=== PATIENT | male | born 1960 | race Caucasian/White ===

== ENCOUNTER → 2019-01-18 10:32 | Outpatient (CLI) | payer OTHER, SELFPAY ==
--- NOTE | 2019-01-18 | DI.US.S_ITS ---
PROCEDURE: US CAROTID DOPPLER BI INDICATIONS: SYNCOPE TECHNIQUE: Color and pulse Doppler interrogation was performed of both carotid systems, with image documentation and velocity measurements. COMPARISON: None. FINDINGS: Stenosis calculations are based on SRU (Society [employer] in Ultras[employer]) criteria. The flow velocities and the arterial waveforms are normal within both carotid arterial systems. Atherosclerotic plaque is seen on both sides. The estimated degree of internal carotid artery stenosis is less than 50%. Antegrade flow is confirmed within both vertebral arteries. IMPRESSION: No hemodynamically significant stenosis is seen. Atherosclerotic plaque is noted bilaterally. Dictated by: Asael Yeung M.D. on 01/18/2019 at 11:25 Approved by: Asael Yeung M.D. on 01/18/2019 at 11:25
== END ==
PROVIDERS: PCP Family Medicine; Visit Provider Family Medicine
DX: R55 Syncope and collapse (principal); I65.23 Occlusion and stenosis of bilateral carotid arteries
CPT/HCPCS: 93880

== ENCOUNTER → 2020-05-10 15:43 | Outpatient (CLI) | payer OTHER, SELFPAY ==
--- NOTE | 2020-05-10 | DI.RAD.S_ITS ---
PROCEDURE: XR LUMBAR SPINE MIN 4V INDICATIONS: Acute Lt Side Low Back Pain W/Sciatica TECHNIQUE: 5 views of the lumbar spine were acquired, including flexion and extension views. COMPARISON: None. FINDINGS: Bones: Postoperative changes are seen, with bilateral pedicle screws at the L2 and L4 levels. The screws appear well placed. Vertical fixation rods are seen. No findings of hardware failure or hardware loosening are seen. Bone grafting material is noted. On flexion-extension views, there is limited range of motion, without abnormal subluxation. No abnormal motion can be seen within the fused region. 5 nonrib-bearing, lumbar type vertebral bodies are seen. There is a remote L3 fracture involving the superior endplate. No acute appearing fractures are seen. No suspicious lytic or blastic lesions can be seen. There is mild to moderate disc space narrowing seen at L2-3 and L3-4. At least moderate disc space narrowing is seen at L5-S1. Soft tissues: Overlying bowel gas pattern is normal. No suspicious soft tissue calcifications. Prostate seed implants can be seen. IMPRESSION: Unremarkable postoperative hardware. Remote L3 compression deformity. Focal L5-S1 degenerative change. Limited range of motion, without abnormal subluxation. Dictated by: Asael Yeung M.D. on 05/10/2020 at 15:35 Approved by: Asael Yeung M.D. on 05/10/2020 at 15:36
== END ==
PROVIDERS: PCP Family Medicine; Referring Provider Family Medicine; Visit Provider Family Medicine
DX: M54.42 Lumbago with sciatica, left side (principal); M47.817 Spondylosis without myelopathy or radiculopathy, lumbosacral region
CPT/HCPCS: 72110

== ENCOUNTER → 2022-07-26 11:14 | Outpatient (CLI) | payer OTHER, SELFPAY ==
--- NOTE | 2022-07-26 | DI.CT.S_ITS ---
PROCEDURE: CT CHEST WO CON INDICATIONS: Personal history of nicotine dependence TECHNIQUE: Noncontrast 2.0-2.5 mm thick sections acquired from the pulmonary apices to the posterior costophrenic angles. 7 mm thick axial MIP, and 5 mm coronal and sagittal reformats were then acquired. A low radiation dose technique was utilized. COMPARISON: None. FINDINGS: Image quality: Diagnostic, given the low radiation dose technique. Lungs and pleura: 2 lung nodules are present in the right lung. Nodule 1: 5 mm; right upper lobe, posterior; series 3, image 85; subsolid. Nodule 2: 2 mm; right upper lobe medial; series 3, image 116; solid. Mediastinum: Heart size is normal. No pericardial effusion. No mediastinal adenopathy by size criteria. Thoracic aorta and central pulmonary arteries are normal in size. Esophagus is normal in caliber. No hiatal hernia. Bones and chest wall: No suspicious bony lesions. No vertebral body compression fractures. No axillary or supraclavicular adenopathy by size criteria. Thyroid gland is normal. Abdomen: Visualized upper abdomen solid organs and bowel loops appear normal in the absence of contrast. IMPRESSION: 2 lung nodules are identified in right upper lobe. LUNG-RADS 3; probably benign. A 6 month follow-up CT suggested. Dictated by: Manuel Michael M.D. on 07/26/2022 at 13:06 Approved by: Manuel Michael M.D. on 07/26/2022 at 13:10
== END ==
PROVIDERS: PCP Family Medicine; Referring Provider Family Medicine; Visit Provider Family Medicine
DX: Z12.2 Encounter for screening for malignant neoplasm of respiratory organs (principal); Z87.891 Personal history of nicotine dependence; R91.8 Other nonspecific abnormal finding of lung field
CPT/HCPCS: 71250

== ENCOUNTER → 2023-01-05 09:06 | Outpatient (CLI) | payer OTHER, SELFPAY ==
--- NOTE | 2023-01-05 | DI.RAD.S_ITS ---
PROCEDURE: XR LUMBAR SPINE 2-3V INDICATIONS: SCIATICA TECHNIQUE: 3 views of the lumbar spine were acquired. COMPARISON: [facility], CR, XR LUMBAR SPINE MIN 4V, 05/10/2020, 15:46. FINDINGS: Bones: 5 [id number] vertebrae are present. Stable posterior surgical fusion at L2 and L4. Stable compression deformity of the L3 vertebral body, without endplate retropulsion. Mild to moderate disc height loss, most prominent at L5-S1, unchanged from prior. Facet arthrosis L4 through S1. Soft tissues: Overlying bowel gas pattern is normal. No suspicious soft tissue calcifications. IMPRESSION: Mild to moderate, multilevel degenerative disc disease, most prominent at L5-S1. Moderate facet arthrosis of L4 through S1. Stable posterior surgical fusion L2 through L4 Dictated by: Luis Montalvo M.D. on 01/05/2023 at 10:56 Approved by: Luis Montalvo M.D. on 01/05/2023 at 10:58
--- NOTE | 2023-01-05 | DI.CT.S_ITS ---
PROCEDURE: CT CHEST WO CON INDICATIONS: LUNG CANCER TECHNIQUE: Noncontrast 5 mm thick sections acquired from the pulmonary apices to the posterior costophrenic angles. 1 mm lung window, 5 mm thick coronal and sagittal and 7 mm axial MIP reformats were then acquired. For radiation dose reduction, the following was used: automated exposure control, adjustment of mA and/or kV according to patient size. COMPARISON: [facility], CT, CT CHEST WO [facility], 07/26/2022, 11:17. FINDINGS: Image quality: Excellent. Lungs and pleura: Two stable right upper lobe lung nodules, 5 mm subpleural posterior ground-glass nodule series 3, image 61, and 3 mm subpleural medial solid nodule series 3, image 88. Mild emphysematous changes and right posterior lower lobe pleural parenchymal scarring. Central and peripheral airways are normal. No pleural effusion or pleural plaquing. Mediastinum: Heart size is normal. No pericardial effusion. No mediastinal adenopathy by size criteria. Thoracic aorta and central pulmonary arteries are normal in size. Esophagus is normal in caliber. No hiatal hernia. Bones and chest wall: No suspicious bony lesions. No vertebral body compression fractures. Small Schmorl's node in the superior endplate of T11 No axillary or supraclavicular adenopathy by size criteria. Thyroid gland is unremarkable . Abdomen: Visualized upper abdominal solid organs and bowel loops appear normal in the absence of contrast. IMPRESSION: 1. Stable three and 5 mm right upper lobe lung nodules appear benign. 2. Continue annual low-dose chest CT screening of patient meets established criteria. Dictated by: Naila Brumfield M.D. on 01/05/2023 at 9:54 Approved by: Naila Brumfield M.D. on 01/05/2023 at 10:01
== END ==
PROVIDERS: PCP Family Medicine; Referring Provider Family Medicine; Visit Provider Family Medicine
DX: R91.8 Other nonspecific abnormal finding of lung field (principal); M51.17 Intervertebral disc disorders with radiculopathy, lumbosacral region; M47.26 Other spondylosis with radiculopathy, lumbar region; M47.27 Other spondylosis with radiculopathy, lumbosacral region; Z98.1 Arthrodesis status
CPT/HCPCS: 71250; 72100

== ENCOUNTER → 2024-10-17 11:00 | Outpatient (CLI) | payer OTHER, SELFPAY ==
--- NOTE | 2024-10-17 | DI.CT.S_ITS ---
PROCEDURE: CT CHEST WO CON INDICATIONS: multiple nodules of lung - persistant cough TECHNIQUE: Noncontrast 5 mm thick sections acquired from the pulmonary apices to the posterior costophrenic angles. 1 mm lung window, 5 mm thick coronal and sagittal and 7 mm axial MIP reformats were then acquired. For radiation dose reduction, the following was used: automated exposure control, adjustment of mA and/or kV according to patient size. COMPARISON: Outside Facility, CT, CT CHEST W CON, 08/13/2021, 22:05. [facility], CT, CT CHEST WO CON, 01/05/2023, 9:23. FINDINGS: Image quality: Diagnostic. Lower Neck: No enlarged lymph nodes. Thyroid: No thyroid nodules which require sonographic follow up, per consensus guidelines. Axillae: No enlarged lymph nodes. Chest Wall: Unremarkable. Bones: Unremarkable. Lungs and Pleura: No pneumothorax or pleural effusions. Moderate centrilobular emphysema. Stable juxtapleural nodule in the right upper lobe. Stable 2 mm solid nodule, right upper lobe (series 3, image 57). Calcified granuloma of the left upper lobe. Heart: Heart size is normal. No pericardial effusion. Thoracic Vessels: The aorta and pulmonary arteries demonstrate normal size. Mediastinum and Usha: No enlarged lymph nodes. Esophagus: No wall thickening. No hiatal hernia. Upper Abdomen: Visualized upper abdomen solid organs and bowel loops appear normal. IMPRESSION: Stable pulmonary nodules, which are statistically benign. Consider annual low-dose lung cancer screening if eligible. Dictated by: Luis Montalvo M.D. on 10/17/2024 at 14:24 Approved by: Luis Montalvo M.D. on 10/17/2024 at 14:27
== END ==
PROVIDERS: PCP Family Medicine; Referring Provider Family Medicine; Visit Provider Family Medicine
DX: R91.8 Other nonspecific abnormal finding of lung field (principal); J43.2 Centrilobular emphysema
CPT/HCPCS: 71250